=== PATIENT | female | born 1930 | race Caucasian/White ===

== ENCOUNTER 2018-04-21 00:09 | Emergency (ER) | payer OTHER ==
[~2018-04-21] VITALS: Ht 165.1 cm; Wt 86.9 kg
[~2018-04-21 00:09] MED LIST: ALLERGY MEDICIN25 M2 PO; ALLERGY10 MG PR; AMLODIPINE BESYL5 MG PO; ARTIFICIAL TEAR15 M1 BOTH EYES; ASCORBIC ACID500 M3 PO; ASPIR-LOW81 MG PO; ATENOLOL25 M1 NG; CLOPIDOGREL75 MG PO; FLONASE16 G1 BOTH NARES; HYDROCHLOROTHIA25 MG PO; KLONOPIN0.5 M1 PO; LEVOFLOXACIN250 MG PO; LEVOFLOXACIN500 MG PO; LOSARTAN POTASS50 MG PO; ONE-A-DAY ESSE1 EAC1 PO; VITAMIN E400 UNIT PO
[2018-04-21 00:33] LABS: HEMATOCRIT 33.9 % (36.0-46.0); HEMOGLOBIN 11.4 G/DL (11.9-15.5); MCH 27.9 PG (29.0-34.0); MCHC 33.6 G/DL (30.0-36.0); MCV 83.1 FL (83-99); PLATELET COUNT 265 K/uL (156-360); RBC DIS.WIDTH-CV 14.5 % (11.8-14.6); RBC DIS.WIDTH-SD 43.7 % (39-53); RED BLOOD COUNT 4.08 M/uL (3.80-5.20); WHITE BLOOD COUNT 6.9 K/uL (4.1-10.2)
[2018-04-21 00:41] LABS: CHLORIDE 97 mEq/L (99-109); POTASSIUM 3.5 mEq/L (3.7-5.4); SODIUM 135 mEq/L (136-147)
[2018-04-21 00:42] LABS: GLUCOSE 115 mg/dL (70-99)
[2018-04-21 00:46] LABS: CREATININE 1.3 mg/dL (0.6-1.3); GFR ESTIMATE (CALCULATED) 41 mL/min/
[2018-04-21 00:47] LABS: UREA NITROGEN (BUN) 32 mg/dL (9-23)
[2018-04-21 00:55] LABS: TROP-I INTERPRETATION NEGATIVE; TROPONIN-I 0.25 ng/mL (0.0-0.30)
[2018-04-21 03:27] LABS: TROP-I INTERPRETATION NEGATIVE; TROPONIN-I 0.19 ng/mL (0.0-0.30)
[2018-04-21 04:31] VITALS: BP 125/69
== END 2018-04-21 04:33 | disposition home or self-care (01) ==
LOC: EME 00:09
PROVIDERS: Emergency Medicine
DX: I49.1 Atrial premature depolarization (principal); R00.2 Palpitations; I10 Essential (primary) hypertension; F41.9 Anxiety disorder, unspecified; Z88.2 Allergy status to sulfonamides; Z88.0 Allergy status to penicillin; Z87.891 Personal history of nicotine dependence
CPT/HCPCS: 71046; 80048; 84484; 85027; 93005; 99281; 99284